=== PATIENT | male | born 1980 | race Caucasian/White ===

== ENCOUNTER 2017-03-20 17:59 | Inpatient (IN) | payer SELFPAY ==
[~2017-03-20] VITALS: Ht 188 cm; Wt 90.4 kg
[~2017-03-20 17:59] MED LIST: BISAC-EVAC10 MG PR; BISACODYL5 MG PO; COLACE100 MG PO; FERROUS SULFAT325 MG PO; LITE COAT ASPI325 M1 PO; MILK OF MAGNESI10 ML PO; OXYCODONE HCL5 MG PO; SENNA8.6 MG PO
[2017-03-20 19:42] LABS: HEMATOCRIT 42.8 % (38.0-50.0); HEMOGLOBIN 14.9 G/DL (12.5-16.6); MCH 31.4 PG (29.0-34.0); MCHC 34.8 G/DL (30.0-36.0); MCV 90.3 FL (86-99); PLATELET COUNT 215 K/uL (156-360); RBC DIS.WIDTH-CV 11.7 % (11.8-14.6); RBC DIS.WIDTH-SD 38.5 % (39-53); RED BLOOD COUNT 4.74 M/uL (4.00-5.50); WHITE BLOOD COUNT 6.8 K/uL (4.1-10.2)
[2017-03-20 19:54] LABS: CHLORIDE 103 mEq/L (99-109); POTASSIUM 4.2 mEq/L (3.7-5.4); SODIUM 136 mEq/L (136-147)
[2017-03-20 19:56] LABS: GLUCOSE 108 mg/dL (70-99)
[2017-03-20 19:59] LABS: GFR ESTIMATE (CALCULATED) > 59 mL/min/ (58.99-99999); SERUM ETHYL ALCOHOL < 10 mg/dL
[2017-03-20 20:00] LABS: UREA NITROGEN (BUN) 15 mg/dL (9-23)
[2017-03-20 20:51] LABS: PHENCYCLIDINE NEGATIVE (25 ng/mL); THC CANNABINOIDS NEGATIVE (50 ng/mL)
[2017-03-20 20:52] LABS: AMPHETAMINE NEGATIVE (500 ng/mL); BARBITURATES NEGATIVE (200 ng/mL); BENZODIAZEPINES NEGATIVE (150 ng/mL); BUPRENORPHINE NEGATIVE (10 ng/mL); COCAINE PRESUMPTIVE POSITIVE (150 ng/mL); METHADONE NEGATIVE (200 ng/mL); METHAMPHETAMINE NEGATIVE (500 ng/mL); OPIATES (MORPHINE) NEGATIVE (100 ng/mL); OXYCODONE NEGATIVE (100 ng/mL); PROPOXYPHENE NEGATIVE (300 ng/mL); TRICYCLIC ANTIDEPRESSANTS NEGATIVE (300 ng/mL)
[2017-03-21 01:42] VITALS: BP 112/64
[2017-03-21 08:22] VITALS: BP 91/52
[2017-03-21 15:47] VITALS: BP 99/56
[2017-03-21 21:43] VITALS: BP 108/65
[2017-03-22 09:28] VITALS: BP 120/73
== END 2017-03-22 12:50 | disposition home or self-care (01) | DRG 881 ==
LOC: EME 17:59 → 1WEST 03-21 00:02 → EDOF 03-21 00:02 → ENRESERV 03-21 01:21 → 1WEST 03-21 01:27
DX: F43.21 Adjustment disorder with depressed mood (principal); F17.200 Nicotine dependence, unspecified, uncomplicated; R45.851 Suicidal ideations; F11.23 Opioid dependence with withdrawal; F14.20 Cocaine dependence, uncomplicated
CPT/HCPCS: 80048; 84999; 85027; 90839; 97165 GO; 99281; 99285; G0480; Q0177

== ENCOUNTER 2017-07-17 20:09 | Inpatient (IN) | payer OTHER ==
[~2017-07-17] VITALS: Ht 188 cm; Wt 88.5 kg
[2017-07-17 21:55] LABS: AMPHETAMINE NEGATIVE (500 ng/mL); BARBITURATES NEGATIVE (200 ng/mL); BENZODIAZEPINES NEGATIVE (150 ng/mL); BUPRENORPHINE NEGATIVE (10 ng/mL); COCAINE PRESUMPTIVE POSITIVE (150 ng/mL); METHADONE NEGATIVE (200 ng/mL); METHAMPHETAMINE NEGATIVE (500 ng/mL); OPIATES (MORPHINE) PRESUMPTIVE POSITIVE (100 ng/mL); OXYCODONE NEGATIVE (100 ng/mL); PHENCYCLIDINE NEGATIVE (25 ng/mL); PROPOXYPHENE NEGATIVE (300 ng/mL); THC CANNABINOIDS PRESUMPTIVE POSITIVE (50 ng/mL); TRICYCLIC ANTIDEPRESSANTS NEGATIVE (300 ng/mL)
[2017-07-17 22:37] LABS: HEMOGLOBIN 13.5 G/DL (12.5-16.6); MCH 32.6 PG (29.0-34.0); MCHC 36.5 G/DL (30.0-36.0); MCV 89.4 FL (86-99); PLATELET COUNT 196 K/uL (156-360); RBC DIS.WIDTH-CV 11.6 % (11.8-14.6); RBC DIS.WIDTH-SD 37.1 % (39-53); RED BLOOD COUNT 4.14 M/uL (4.00-5.50); WHITE BLOOD COUNT 7.8 K/uL (4.1-10.2)
[2017-07-17 22:48] LABS: CHLORIDE 105 mEq/L (99-109); POTASSIUM 3.9 mEq/L (3.7-5.4); SODIUM 137 mEq/L (136-147)
[2017-07-17 22:49] LABS: GLUCOSE 120 mg/dL (70-99)
[2017-07-17 22:53] LABS: CREATININE 1.1 mg/dL (0.6-1.3); GFR ESTIMATE (CALCULATED) > 59 mL/min/ (58.99-99999); SERUM ETHYL ALCOHOL < 10 mg/dL
[2017-07-17 22:55] LABS: UREA NITROGEN (BUN) 18 mg/dL (9-23)
[2017-07-17 22:57] LABS: ACETAMINOPHEN (TYLENOL) < 10 mcg/mL (10-30); SALICYLATE < 5.0 MG/DL (15-30)
[2017-07-18 01:24] VITALS: BP 110/67
[2017-07-18 07:59] VITALS: BP 110/55
[2017-07-18 14:37] VITALS: BP 95/50
[2017-07-18 20:42] VITALS: BP 102/57
[2017-07-19 07:28] VITALS: BP 87/45
[2017-07-19 09:06] VITALS: BP 106/58
[2017-07-19 15:10] VITALS: BP 104/77
[2017-07-20 07:36] VITALS: BP 100/59
[2017-07-20 15:09] VITALS: BP 111/59
[2017-07-21 08:01] VITALS: BP 101/56
[2017-07-21 15:59] VITALS: BP 111/56
[2017-07-22 07:51] VITALS: BP 88/53
[2017-07-22] MEDS ORDERED: BACTRIM,SEPT1 TABLET PO (11:12)
[2017-07-22] MEDS ORDERED: CEPHALEXIN500 MG PO (11:12)
[2017-07-22] MEDS ORDERED: ESCITALOPRAM OX10 MG PO (11:12)
== END 2017-07-22 12:43 | disposition home or self-care (01) | DRG 882 ==
LOC: EME 20:09 → EDOF 07-18 00:08 → 1WEST 07-18 00:08 → ENRESERV 07-18 00:56 → 1WEST 07-18 01:16
PROVIDERS: Emergency Medicine
DX: F43.25 Adjustment disorder with mixed disturbance of emotions and conduct (principal); F43.23 Adjustment disorder with mixed anxiety and depressed mood; F14.20 Cocaine dependence, uncomplicated; F11.20 Opioid dependence, uncomplicated; L03.114 Cellulitis of left upper limb; Z59.0 Homelessness; R45.851 Suicidal ideations; F17.200 Nicotine dependence, unspecified, uncomplicated; F10.10 Alcohol abuse, uncomplicated; F19.94 Other psychoactive substance use, unspecified with psychoactive substance-induced mood disorder
CPT/HCPCS: 80048; 84999; 85027; 90839; 97150 GO; 97165 GO; 97530 GO; 99281; 99285; G0480; J0572; J0574; Q0177

== ENCOUNTER 2017-09-10 21:30 | Inpatient (IN) | payer OTHER ==
[~2017-09-10] VITALS: Ht 185.4 cm; Wt 81.4 kg
[~2017-09-10 21:30] MED LIST changes: +BACTRIM,SEPT1 TABLET PO; +CEPHALEXIN500 MG PO; +ESCITALOPRAM OX10 MG PO
[2017-09-10 23:11] LABS: HEMATOCRIT 39.9 % (38.0-50.0); HEMOGLOBIN 13.8 G/DL (12.5-16.6); MCH 31.4 PG (29.0-34.0); MCHC 34.6 G/DL (30.0-36.0); MCV 90.9 FL (86-99); PLATELET COUNT 191 K/uL (156-360); RBC DIS.WIDTH-CV 12.4 % (11.8-14.6); RBC DIS.WIDTH-SD 41.1 % (39-53); RED BLOOD COUNT 4.39 M/uL (4.00-5.50); WHITE BLOOD COUNT 5.9 K/uL (4.1-10.2)
[2017-09-10 23:25] LABS: CHLORIDE 105 mEq/L (99-109); POTASSIUM 3.5 mEq/L (3.7-5.4); SODIUM 140 mEq/L (136-147)
[2017-09-10 23:26] LABS: GLUCOSE 84 mg/dL (70-99)
[2017-09-10 23:28] LABS: AMPHETAMINE NEGATIVE (500 ng/mL); BARBITURATES NEGATIVE (200 ng/mL); BENZODIAZEPINES NEGATIVE (150 ng/mL); BUPRENORPHINE NEGATIVE (10 ng/mL); COCAINE NEGATIVE (150 ng/mL); METHADONE NEGATIVE (200 ng/mL); METHAMPHETAMINE NEGATIVE (500 ng/mL); OPIATES (MORPHINE) NEGATIVE (100 ng/mL); OXYCODONE NEGATIVE (100 ng/mL); PHENCYCLIDINE NEGATIVE (25 ng/mL); PROPOXYPHENE NEGATIVE (300 ng/mL); THC CANNABINOIDS PRESUMPTIVE POSITIVE (50 ng/mL); TRICYCLIC ANTIDEPRESSANTS NEGATIVE (300 ng/mL)
[2017-09-10 23:30] LABS: GFR ESTIMATE (CALCULATED) > 59 mL/min/ (58.99-99999); SERUM ETHYL ALCOHOL 151 mg/dL
[2017-09-10 23:32] LABS: UREA NITROGEN (BUN) 11 mg/dL (9-23)
[2017-09-10 23:34] LABS: ACETAMINOPHEN (TYLENOL) < 10 mcg/mL (10-30); SALICYLATE < 5.0 MG/DL (15-30)
[2017-09-11 03:16] VITALS: BP 104/58
[2017-09-11 07:34] VITALS: BP 95/50
[2017-09-11] MEDS ORDERED: LEXAPRO10 MG PO (09:53)
[2017-09-11 10:38] VITALS: BP 99/53
[2017-09-11 15:24] VITALS: BP 120/57
[2017-09-12 07:35] VITALS: BP 93/51
[2017-09-12 17:30] VITALS: BP 125/76
[2017-09-13 08:09] VITALS: BP 85/50
[2017-09-13 17:10] VITALS: BP 112/64
[2017-09-14 07:47] VITALS: BP 90/53
== END 2017-09-14 11:04 | disposition home or self-care (01) | DRG 918 ==
LOC: EME → EDBD 21:30 → 1WEST 09-11 01:32 → EDOF 09-11 01:32 → ENRESERV 09-11 02:29 → 1WEST 09-11 03:03
PROVIDERS: Emergency Medicine
PROC: HZ2ZZZZ Detoxification Services for Substance Abuse Treatment (ICD-10-PCS; principal; 2017-09-11)
DX: T40.1X2A Poisoning by heroin, intentional self-harm, initial encounter (principal); R45.851 Suicidal ideations; F17.200 Nicotine dependence, unspecified, uncomplicated; F20.9 Schizophrenia, unspecified; F10.10 Alcohol abuse, uncomplicated; Y90.6 Blood alcohol level of 120-199 mg/100 ml; F33.1 Major depressive disorder, recurrent, moderate; F14.10 Cocaine abuse, uncomplicated; F11.10 Opioid abuse, uncomplicated; Z59.0 Homelessness; Y92.89 Other specified places as the place of occurrence of the external cause
CPT/HCPCS: 80048; 84999; 85027; 90839; 93005; 97150 GO; 97166 GO; 99281; 99285; G0480; J0572; Q0177